=== PATIENT | female | born 1965 | race Hispanic/Latino ===

== ENCOUNTER 2021-07-05 21:40 | Emergency (ER) | payer SELFPAY ==
[2021-07-05 22:05] VITALS: BP 144/72
--- NOTE | 2021-07-05 22:47 | Emergency Department Report ---
ED Lower Extremity HPI - General Chief Complaint: Extremity Injury, Lower Stated Complaint: FOOT PAIN Time Seen by Provider: 07/05/21 22:34 Source: patient Mode of arrival: Ambulatory Limitations: Physical Limitation - History of Present Illness Initial Comments: Patient is 56 years old female with history of breast cancer in remission. Patient presented to the ER complaining of left foot and ankle pain for the last 2 weeks. Patient stated that she remember an injury approximately 2 weeks ago when she stepped on her porch and she twisted her ankle. She stated that since then she has been having this pain and swelling. She stated that she had multiple surgeries on her foot approximately 6 or 7 years ago. Patient denied any other injuries. MD Complaint: ankle injury, foot injury -: week(s) (2) Injury: Ankle: Left, Foot: Left Type of Injury: inversion Place: home Severity: moderate Severity scale (0 -10): 4 Associated Symptoms: swelling - Related Data Home Medications Medication Instructions Recorded Confirmed Last Taken Diphenoxylate/Atropine [Lomotil] 1 tab PO Q4H PRN 11/21/14 11/28/14 Unknown Metformin HCl [Metformin] 1,000 mg PO BID 11/21/14 11/28/14 11/27/14 09:00 Ondansetron [Zofran TAB] 4 mg PO Q8HR PRN 11/21/14 11/28/14 11/27/14 09:00 Potassium Chloride 20 meq PO Q48HR 11/21/14 11/28/14 11/26/14 19:00 Pravastatin Sodium 40 mg PO DAILY 11/21/14 11/28/14 11/27/14 19:00 Sitagliptin Phosphate [Januvia] 100 mg PO DAILY 11/21/14 11/28/14 11/27/14 09:00 Tamoxifen Citrate 20 mg PO QDAY 11/21/14 11/28/14 11/25/14 09:00 hydroCHLOROthiazide [HCTZ] 12.5 mg PO DAILY 11/21/14 11/28/14 11/27/14 09:00 Previous Rx's Medication Instructions Recorded Last Taken Type Naproxen [Naprosyn] 500 mg PO BID #14 tablet 07/05/21 Unknown Rx Ondansetron [Zofran Odt] 4 mg PO Q8HR PRN #14 tab.rapdis 07/05/21 Unknown Rx traMADoL [Ultram 50 MG tab] 50 mg PO Q4HR PRN #14 tablet 07/05/21 Unknown Rx Allergies Allergy/AdvReac Type Severity Reaction Status Date / Time No Known Allergies Allergy Unverified 11/21/14 09:23 ED Review of Systems ROS: Stated complaint: FOOT PAIN Other details as noted in HPI Comment: All other systems reviewed and negative Constitutional: denies: chills, fever Respiratory: denies: cough, shortness of breath, SOB with exertion, SOB at rest Cardiovascular: denies: chest pain, palpitations Gastrointestinal: denies: abdominal pain, nausea, vomiting Musculoskeletal: arthralgia Neurological: denies: headache, weakness ED Past Medical Hx - Past Medical History Previous Medical History?: Yes Hx Hypertension: Yes (at least 5-6 yrs) Hx Congestive Heart Failure: No Hx Diabetes: Yes Hx GERD: Yes Hx Renal Disease: No Hx of Cancer: Yes (breast) Hx Arthritis: Yes (knees) Hx Headaches / Migraines: Yes (past hx migraines) Hx Seizures: No Hx Asthma: Yes (last used inhaler 1 1/2 yrs ago) Hx COPD: No - Surgical History Past Surgical History?: No - Social History Smoking Status: Never Smoker - Medications Home Medications: Home Medications Medication Instructions Recorded Confirmed Last Taken Type Diphenoxylate/Atropine [Lomotil] 1 tab PO Q4H PRN 11/21/14 11/28/14 Unknown History Metformin HCl [Metformin] 1,000 mg PO BID 11/21/14 11/28/14 11/27/14 09:00 History Ondansetron [Zofran TAB] 4 mg PO Q8HR PRN 11/21/14 11/28/14 11/27/14 09:00 History Potassium Chloride 20 meq PO Q48HR 11/21/14 11/28/14 11/26/14 19:00 History Pravastatin Sodium 40 mg PO DAILY 11/21/14 11/28/14 11/27/14 19:00 History Sitagliptin Phosphate [Januvia] 100 mg PO DAILY 11/21/14 11/28/14 11/27/14 09:00 History Tamoxifen Citrate 20 mg PO QDAY 11/21/14 11/28/14 11/25/14 09:00 History hydroCHLOROthiazide [HCTZ] 12.5 mg PO DAILY 0711/28/14 11/27/14 09:00 History Naproxen [Naprosyn] 500 mg PO BID #14 tablet 07/05/21 Unknown Rx Ondansetron [Zofran Odt] 4 mg PO Q8HR PRN #14 tab.rapdis 07/05/21 Unknown Rx traMADoL [Ultram 50 MG tab] 50 mg PO Q4HR PRN #14 tablet 07/05/21 Unknown Rx ED Physical Exam - General Limitations: Physical Limitation General appearance: alert, in no apparent distress - Head Head exam: Present: atraumatic, normocephalic, normal inspection - Eye Eye exam: Present: normal appearance - ENT ENT exam: Present: normal exam, normal orophraynx, mucous membranes moist - Neck Neck exam: Present: normal inspection, full ROM. Absent: tenderness, meningismus - Respiratory Respiratory exam: Present: normal lung sounds bilaterally - Cardiovascular Cardiovascular Exam: Present: regular rate, normal rhythm, normal heart sounds - GI/Abdominal GI/Abdominal exam: Present: soft, normal bowel sounds. Absent: distended, tenderness, guarding, rebound, rigid, organomegaly, mass, bruit, pulsatile mass, hernia - Extremities Exam Extremities exam: Present: normal inspection, full ROM, normal capillary refill. Absent: tenderness - Back Exam Back exam: Present: normal inspection, full ROM. Absent: tenderness, CVA tenderness (R), CVA tenderness (L) - Neurological Exam Neurological exam: Present: alert, oriented X3, CN II-XII intact, normal gait, reflexes normal. Absent: motor sensory deficit - Psychiatric Psychiatric exam: Present: normal mood - Skin Skin exam: Present: warm, intact, normal color ED Course Vital Signs 07/05/21 22:03 Temperature 98.1 F Pulse Rate 78 Respiratory 17 Rate Blood Pressure 144/72 [Left] O2 Sat by Pulse 100 Oximetry ED Lower Extremity MDM - Radiology Data Radiology results: report reviewed Patient is 56 years old female with history of breast cancer in remission. Patient presented to the ER complaining of left foot and ankle pain for the last 2 weeks. Patient stated that she remember an injury approximately 2 weeks ago when she stepped on her porch and she twisted her ankle. She stated that since then she has been having this pain and swelling. She stated that she had multiple surgeries on her foot approximately 6 or 7 years ago. Patient denied any other injuries. 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 There is no fracture or dislocation. I gave patient prescription for Naprosyn and tramadol and Zofran and advised to follow-up with her primary doctor in the next 2 to 3 days and to return to the ER if she develop any new symptoms. Critical care attestation.: If time is entered above; I have spent that time in minutes in the direct care of this critically ill patient, excluding procedure time. ED Disposition Clinical Impression: Acute foot pain, Acute ankle pain, Arthritis Disposition: 01 HOME / SELF CARE / HOMELESS Is pt being admited?: No Condition: Stable Instructions: Arthritis, Ankle Pain Prescriptions: Naproxen [Naprosyn] 500 mg PO BID #14 tablet traMADoL [Ultram 50 MG tab] 50 mg PO Q4HR PRN #14 tablet PRN Reason: Pain Ondansetron [Zofran Odt] 4 mg PO Q8HR PRN #14 tab.rapdis PRN Reason: Nausea And Vomiting Referrals: PRIMARY CARE, [Referring] - 3-5 Days
--- NOTE | 2021-07-05 23:17 | XRay Report ---
LEFT ANKLE 3 VIEWS INDICATION / CLINICAL INFORMATION: Left ankle injury. COMPARISON: None available. FINDINGS: BONES / JOINT(S): No acute fracture or subluxation. Previous screw placement at the junction of the m id and forefoot. 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 SOFT TISSUES: Soft tissue swelling much greater medially. ADDITIONAL FINDINGS: None. Signer Name: Parker Medrano MD Signed: 07/05/2021 11:13 PM Workstation Name: [id number]
--- NOTE | 2021-07-05 23:40 | XRay Report ---
LEFT FOOT 3 VIEWS INDICATION / CLINICAL INFORMATION: Left foot injury. COMPARISON: None available. FINDINGS: BONES / JOINT(S): No acute fracture or subluxation. Fusion at the midfoot and forefoot with indwellin g hardware. 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 SOFT TISSUES: Soft tissue swelling greater medially. ADDITIONAL FINDINGS: None. Signer Name: Parker Medrano MD Signed: 07/05/2021 11:36 PM Workstation Name: [id number]
== END 2021-07-06 01:16 | disposition home or self-care (01) ==
LOC: ED 21:40
DX: M79.673 Pain in unspecified foot (principal); M25.579 Pain in unspecified ankle and joints of unspecified foot; M13.80 Other specified arthritis, unspecified site; I10 Essential (primary) hypertension; E11.8 Type 2 diabetes mellitus with unspecified complications; J45.909 Unspecified asthma, uncomplicated
CPT/HCPCS: 99283